=== PATIENT | female | born 1950 | race Caucasian/White ===

== ENCOUNTER → 2016-04-13 | Outpatient (CLI) | payer OTHER, BC ==
[~2016-04-13] VITALS: Ht 147.3 cm; Wt 51.3 kg
[~2016-04-13] MED LIST: ACYCLOVIR 800800 MG PO; ALPHAGAN P10 ML OP; APAP500 PO; AXERT6.25 MG OR; CLARITIN10 MG OR; COLACE100 MG PO; CYCLOBENZAPRINE OR; CYMBALTA30 MG PO; DOXYCYCLINE HY100 M3 PO; EVISTA OR; FEMARA2.5 MG PO; FLEXERIL PO; GABAPENTIN 100100 MG PO; HYDROCODONE-APA1 TA1 PO; HYSINGLA ER20 MG PO; K-TAB10 MEQ PO; KLOR-CON OR; LASIX 40 MG TAB40 M2 PO; LEVOTHYROXIN0.075 MG PO; LINZESS145 MCG PO; LUMIGAN2.5 M1 OP; LYRICA 50 MG50 MG PO; MAXALT5 MG PO; MOBIC OR; MOBIC7.5 MG PO; MUCINEX600 MG PO; NEXIUM40 MG OR; NEXIUM40 MG PO; NORCO 7.5-3251 EACH PO; NUCYNTA50 MG PO; NUCYNTA75 MG PO; PROLIA60 MG/1 ML SQ; PROPRANOLOL OR; STOOL SOFTENER100 M1 PO; SYNTHROID; TOPAMAX 25 MG T25 M1 PO; TRAMADOL 50 MG50 MG PO; TRAMADOL HCL50 MG PO; VITAMIN D 5050000 I1 PO; VITAMIN D1000 UNI1 PO; VITAMIN D400 UNI1 OR; VOLTAREN GEL 1100 G2 TOP; XANAX 0.25 MG0.25 MG PO
--- NOTE | ~2016-04-13 | HPC ---
[facility] [address] [place] [address] PAIN MANAGEMENT CONSULTATION Name: ERIC LANG Room #: REG GI Thompson#: [id number] Admission: 04/13/16 Attend Phys: Fidencio Calderon DO Discharge: Date of : 48 Report #: [id number] THIS REPORT FOR: //name// CC: Peace Calderon DATE OF SERVICE: 04/13/2016 The patient is a very pleasant 66-year-old female well known to pain clinic, typically treated for lumbar radiculopathy, although last visit, she had primarily right SI mediated pain, SI joint injections at that time afforded good relief. Returns to pain clinic today with ongoing right radicular pain. Pain is fairly classic right L3 distribution. She rates it a 5-6 on a 0-10 visual analog scale, exacerbated with sitting or bending over. Gets some relief with heat and exercise. She has really been intolerant of most analgesics, even TRAMADOL causing cognitive impairment. I reviewed her MRI findings, which do show fairly dramatic and significant stenosis with L3-L4 noting moderate to severe right-sided neural foraminal narrowing effacing the right L3 nerve root. She has spondylolisthesis at L4-L5. Long discussion with the patient today. Again, I believe unfortunately at some point, she may require surgical decompression. I have taken the liberty giving her contact information for Dr. Zoran Barcenas, Dr. Bob Terrazas, the neurosurgeons. Also, I gave her contact information for Dr. Arley Benavides though he has stopped active practice at [facility]. PHYSICAL EXAMINATION: Shows pleasant 66-year-old female, BMI is 23.6 kilograms per meter squared. Blood pressure is modestly elevated 139/93, pulse 94, respirations 16. Alert and oriented to person, place and time, judged to be a reasonable historian. Rises from chair using armrest, modestly antalgic gait, positive straight leg raise on the right with right hip flexion, lower extremity extension strength diminished. ASSESSMENT: Symptomatic lumbar radiculopathy secondary to spinal stenosis. RECOMMENDATION: 1. Lumbar epidural injection under fluoroscopy today at L3-L4, right of midline approach. 2. Contact information for neurosurgeon for consideration for definitive intervention. PROCEDURE: Lumbar epidural injection under fluoroscopy. [facility] [address] [place] [address] PAIN MANAGEMENT CONSULTATION Name: ERIC LANG Room #: REG GI Thompson#: [id number] Admission: 04/13/16 Attend Phys: Fidencio Calderon DO Discharge: Date of : 48 Report #: [id number] PROCEDURE NOTE: After both written and informed consent to include risk of spinal cord damage, increased pain, weakness and dural puncture, the patient was taken to the fluoroscopy suite, placed in the prone position. After sterile prep and drape, a skin wheal with lidocaine was raised. A 22-gauge epidural Tuohy needle was inserted in the midline at L3-L4 with good loss to resistance. Negative aspiration for cerebrospinal fluid or blood was noted. Then 1 mL of Omnipaque under biplanar fluoroscopy showed good spread within the epidural space. This was followed with 80 mg of triamcinolone plus 1 mL of 1.5% preservative-free Xylocaine, 0.5 mL Xylocaine was then injected to flush the needle; it was removed. The patient was monitored for an appropriate period of time and discharged in good and stable condition. <ELECTRONICALLY SIGNED> By: Fidencio Calderon DO 04/18/16 1607 1235 1721 Fidencio Calderon DO /nt
[2016-04-13 10:58] VITALS: BP 139/93
== END | disposition home or self-care (01) ==
LOC: PAIN 07:16
DX: M48.06 Spinal stenosis, lumbar region (principal); G89.29 Other chronic pain

== ENCOUNTER → 2016-06-15 | Outpatient (CLI) | payer OTHER, BC ==
[~2016-06-15] VITALS: Ht 144.8 cm; Wt 51.4 kg
--- NOTE | ~2016-06-15 | HPC ---
[facility] [place] [address] [place] [address] PAIN MANAGEMENT CONSULTATION Name: ERIC LANG Room #: REG GI Thompson#: [id number] Admission: 06/15/16 Attend Phys: Fidencio Calderon DO Discharge: Date of : 48 Report #: [id number] THIS REPORT FOR: //name// CC: Peace Calderon The patient is an extremely pleasant 66-year-old female well known to pain clinic, typically treated for symptomatic lumbar radiculopathy secondary to spinal stenosis, component of right SI joint dysfunction and DJD affecting right knee. She was last seen in the pain clinic 05/11/2016. She has done well over time with episodic epidural injections as far back as January 2014. Generally had good relief for several months, although last injection 04/13/2016 had afforded less duration of improvement. I ordered an MRI of the lumbar spine, which was obtained 05/16/2016. We reviewed these findings. Notes fairly significant stenosis with the right neural foraminal narrowing at L3-L4. Her symptoms tend to be primarily right L3 radicular pattern. We talked about possibly moving forward with a surgical opinion and she does indeed have consult with Dr. Bob Terrazas coming up. She was started on gabapentin fairly low dose 200 mg did not help, 300 mg helps, but has caused some emotional lability and little bit of a tremor. I suggested we might try rotating Lyrica 50 mg generally about an equally a therapeutic dose, but may be associated with some less side effects. PHYSICAL EXAMINATION: Today again, does show a little pain in the right knee. She had a recent steroid injections here. BMI is 24.5 kilograms per meter squared. Vital signs 132/95, pulse 101, respirations 16. Alert and oriented to person, place and time, judged to be a reasonable historian. Rises from chair using armrest, does have a thoraco-lumbar scoliosis in the lumbar spine. Slight decreased right hip flexion strength. Positive straight leg raise on the right. ASSESSMENT: 1. Symptomatic lumbar radiculopathy secondary to spinal stenosis, lumbar spondylosis with component of scoliosis, degenerative joint disease affecting bilateral knees, right greater than left and some component of right sacroiliac joint dysfunction. 2. Neuropathic pain component. RECOMMENDATIONS: 1. As noted, I have taken the liberty of writing for a small dose of Lyrica 50 mg 1 tablet t.i.d., dispensed #21 tablets with a coupon to get this first week provided by the provider. I have suggested the patient simply take the tablet one at bedtime in lieu of the gabapentin. 2. Fluoroscopic-guided epidural injection today, right of midline at L3-L4. 3. Agree with neurosurgical consultation. [address] [address] PAIN MANAGEMENT CONSULTATION Name: ERIC LANG Room #: REG CL Donna#: [id number] Admission: 06/15/16 Attend Phys: Fidencio Calderon DO Discharge: Date of : 48 Report #: [id number] PROCEDURE: Lumbar epidural steroid injection. PROCEDURE NOTE: After both written and informed consent to include risk of spinal cord damage, increased pain, weakness and dural puncture, the patient was taken to the fluoroscopy suite, placed in the prone position. After sterile prep and drape, a skin wheal with lidocaine was raised. A 22-gauge epidural Tuohy needle was inserted in the midline at L3-4 with good loss to resistance. Negative aspiration for cerebrospinal fluid or blood was noted. Then 1 mL of Omnipaque under biplanar fluoroscopy showed good spread within the epidural space. This was followed with 80 mg of triamcinolone plus 1 mL of 1.5% preservative-free Xylocaine, 0.5 mL Xylocaine was then injected to flush the needle; it was removed. The patient was monitored for an appropriate period of time and discharged in good and stable condition. The patient was discharged in good and stable condition, noting some subjective improvement of baseline pain. <ELECTRONICALLY SIGNED> By: Fidencio Calderon DO 06/18/16 1237 1321 0133 Fidencio Calderon DO /nt
[2016-06-15 14:18] VITALS: BP 132/95
== END ==
LOC: PAIN 06:48
DX: M47.26 Other spondylosis with radiculopathy, lumbar region (principal); M41.86 Other forms of scoliosis, lumbar region; M17.0 Bilateral primary osteoarthritis of knee; M53.3 Sacrococcygeal disorders, not elsewhere classified; F10.21 Alcohol dependence, in remission

== ENCOUNTER → 2016-06-26 | Outpatient (CLI) | payer OTHER, BC | LOC: MRI 02:04 | DX: M17.12 Unilateral primary osteoarthritis, left knee (principal) ==

== ENCOUNTER → 2016-06-29 | Outpatient (CLI) | payer OTHER, BC ==
[~2016-06-29] VITALS: Ht 147.3 cm; Wt 52.0 kg
--- NOTE | ~2016-06-29 | HPC ---
[facility] [place] [address] PAIN MANAGEMENT CONSULTATION Name: ERIC LANG Room #: REG GI Thompson#: [id number] Admission: 06/29/16 Attend Phys: Fidencio Calderon DO Discharge: Date of : 48 Report #: [id number] THIS REPORT FOR: //name// CC: Peace Calderon The patient is a very pleasant 66-year-old female typically treated for lumbar radiculopathy secondary to spinal stenosis. She has a component of right SI mediated pain. She was given an epidural injection at last visit 06/15/2016 with very good transient relief. She typically does get good relief, though symptoms continue to recur. She notes she had 60% relief overall from last visit. She was able to walk a little better with less pain; however, she went to [place] with her brother and states she walked up to 8 miles a day for a long weekend and pain continues to be problematic. She has since I saw her last seen Dr. Zoran Barcenas. He reviewed surgical options and in his opinion, a spinal cord stimulator to be the best option. She has also seen Dr. Jesus Leal who notes she will likely need partial replacement of the right knee. Today, we spent a good deal of time talking about therapeutic options. Again, I am happy to trial a spinal cord stimulator, but I think we should address her knee first. Last visit, I started the patient on Lyrica samples for neuropathic pain. She thinks that this is helpful, but she is using a fairly low dose 15 mg at bedtime. We have taken the liberty of writing a prescription for 50 mg tablet to take one tablet in the morning, 2 at night. I have given her samples to titrate up to this dose. She notes today the pain of 5/10, pinching, sharpening, burning, tingling, low back, right leg with knee pain that remains unchanged. PHYSICAL EXAMINATION: Otherwise unchanged. Very pleasant 66-year-old female, BMI is 27 kilograms per meter squared. Blood pressure is modestly elevated 140/94, pulse 95, respirations are 12. Rises from chair using armrest, moderately antalgic gait. Does have some diffuse tenderness across the low back, does have a little scoliosis. Positive straight leg raise on the right, though this is fairly nominal. Primary pain is axial low back with right knee pain. ASSESSMENT: Symptomatic lumbar radiculopathy secondary to spinal stenosis, right sacroiliac joint mediated pain and right knee degenerative joint disease. RECOMMENDATION: After discussion with the patient, we elected to increase Lyrica as noted above. I provided a prescription for 50 mg tablets titrated up to 1 in the morning and 2 at night, 270 tablets for a 90-[place] [address] PAIN MANAGEMENT CONSULTATION Name: ERIC LANG Room #: REG GI Thompson#: [id number] Admission: 06/29/16 Attend Phys: Fidencio Calderon DO Discharge: Date of : 48 Report #: [id number] will have the patient follow up after she follows through with Dr. Leal for consideration for a partial knee arthroscopy. We will move forward with authorizing spinal cord stimulator. We talked about need to talk to a psychologist as required by most third alliance party payers including Medicare. Again, I think she is an excellent candidate. She has ongoing symptomatic lumbar radiculopathy secondary to spinal stenosis. She has significant scoliosis. She has been seen by an excellent neurosurgeon who suggests at this point no interventional therapy as surgery would be fairly extensive and would likely only affect some of the radicular component of pain, would not address the axial back pain. We will seek authorization for spinal cord stimulator trial (high frequency stimulator, Nevro). The patient was discharged in good and stable condition. <ELECTRONICALLY SIGNED> By: Fidencio Calderon DO 07/02/16 1130 1037 1333 Fidencio Calderon DO /nt
[2016-06-29 13:29] VITALS: BP 140/94
== END ==
LOC: PAIN 07:03
DX: M54.16 Radiculopathy, lumbar region (principal); M48.06 Spinal stenosis, lumbar region; M53.3 Sacrococcygeal disorders, not elsewhere classified; M17.11 Unilateral primary osteoarthritis, right knee

== ENCOUNTER → 2016-08-31 | Outpatient (CLI) | payer OTHER, BC ==
[~2016-08-31] VITALS: Ht 144.8 cm; Wt 52.4 kg
[~2016-08-31] MED LIST changes: +ACCUNEB SO1.25 MG/1 INH; +LYRICA100 MG PO
--- NOTE | ~2016-08-31 | HPC ---
[facility] [address] [place] [address] PAIN MANAGEMENT CONSULTATION Name: ERIC LANG Room #: REG GI Thompson#: [id number] Admission: 08/31/16 Attend Phys: Fidencio Calderon DO Discharge: Date of : 48 Report #: [id number] THIS REPORT FOR: //name// CC: Peace Calderon HISTORY OF PRESENT ILLNESS: The patient is a very pleasant 66-year-old female well known to pain clinic, typically treated for symptomatic lumbar radiculopathy secondary to spinal stenosis and significant scoliosis. Component of right SI joint dysfunction. She was last seen in the pain clinic on 06/29/2016. Given epidural injection on 06/15/2016 (prior had had a single injection on 04/13/2016; prior epidural injections had been greater than a year ago, May 2015). We talked about spinal cord stimulator at last visit, I suggested the patient follow up with the back surgeon, she did have a consult with Dr. Zoran Barcenas. He ordered new diagnostic studies noting moderate lumbar scoliosis, spondylolisthesis at L4-L5 which worsens with flexion. He suggested that if they were to proceed with surgery, it would be fairly extensive and the benefits would not likely outweigh the risks. Ultimately, they have elected to defer back surgery, we will continue to treat the patient as needed for lumbar radicular symptoms. We talked about pursuing spinal cord stimulator as a more definitive treatment option. She does have DJD, right knee. I have spoken with Dr. Leal about possible total knee arthroplasty, this due to scheduling concerns will not likely occur till the fall. I told the patient we can proceed with spinal cord stimulator at her convenience. We had discussed risks, benefits and therapeutic indications at length in the past. She presents to pain clinic today with ongoing radicular pain. She notes pain is 4/10 presently, but gets worse with activity, classic neurogenic claudication with pain in low back, right buttock and leg. ASSESSMENT: Symptomatic lumbar radiculopathy secondary to spinal stenosis. RECOMMENDATIONS: Epidural injection under fluoroscopy today. Follow up simply as needed. PROCEDURE: Lumbar epidural injection under fluoroscopy. PROCEDURE NOTE: After both written and informed consent to include risk of spinal cord damage, increased pain, weakness and dural puncture, the patient was taken to the fluoroscopy suite, placed in the prone position. After sterile prep and drape, a skin wheal with lidocaine was raised. A 22-gauge epidural Tuohy needle was inserted in the midline at L3-L4 with good loss to resistance. Negative aspiration for cerebrospinal fluid or blood was noted. Then 1 mL of Omnipaque under biplanar fluoroscopy showed good spread within the epidural [address] [address] PAIN MANAGEMENT CONSULTATION Name: ERIC LANG Room #: REG GI Thompson#: [id number] Admission: 08/31/16 Attend Phys: Fidencio Calderon DO Discharge: Date of : 49 Report #: [id number] space. This was followed with 80 mg of triamcinolone plus 1 mL of 1.5% preservative-free Xylocaine, 0.5 mL Xylocaine was then injected to flush the needle; it was removed. The patient was monitored for an appropriate period of time and discharged in good and stable condition. By: 1538 [id number] Fidencio Calderon DO /nt
[2016-08-31 13:02] VITALS: BP 137/92
== END | disposition home or self-care (01) ==
LOC: PAIN 06:19
DX: M48.06 Spinal stenosis, lumbar region (principal); G89.29 Other chronic pain; M53.3 Sacrococcygeal disorders, not elsewhere classified; M41.86 Other forms of scoliosis, lumbar region; M17.0 Bilateral primary osteoarthritis of knee

== ENCOUNTER → 2016-12-27 | Outpatient (CLI) | payer OTHER, BC ==
[~2016-12-27] VITALS: Ht 144.8 cm; Wt 53.0 kg
--- NOTE | ~2016-12-27 | HPC ---
[facility] [address] [place] [address] PAIN MANAGEMENT CONSULTATION Name: ERIC LANG Room #: REG GI Thompson#: [id number] Admission: 12/27/16 Attend Phys: Fidencio Calderon DO Discharge: Date of : 48 Report #: [id number] THIS REPORT FOR: //name// CC: Peace Calderon The patient is a very pleasant 66-year-old female well known to the pain clinic, being treated for lumbar radiculopathy secondary to spinal stenosis, lumbar scoliosis and spondylosis, right SI joint dysfunction. We talked about spinal cord stimulator at multiple times. She follows up with Dr. Zorna Barcenas who unfortunately noted that she really is not a good surgical candidate. Ultimately, we have elected to continue with conservative therapy. She is traveling to [place] for a cruise up in the [place] and [facility]. She is requesting epidural injection today. We will plan on moving forward with spinal cord stimulator trial when she gets back. She has done well with occasional epidural injections, she has had injections of this year in August, June and April. Physical exam notes subjective pain score 7 on a VAS, pain in her low back, primarily right leg, anterior thigh and right L3 distribution. ASSESSMENT: Symptomatic lumbar radiculopathy secondary to spinal stenosis. RECOMMENDATIONS: Lumbar epidural injection under fluoroscopy today. Follow up for consideration for spinal cord stimulator trial at earliest possible date. PROCEDURE NOTE: Lumbar epidural injection under fluoroscopy. PROCEDURE: Lumbar epidural steroid injection. PROCEDURE NOTE: After both written and informed consent to include risk of spinal cord damage, increased pain, weakness and dural puncture, the patient was taken to the fluoroscopy suite, placed in the prone position. After sterile prep and drape, a skin wheal with lidocaine was raised. A 22-gauge epidural Tuohy needle was inserted in the midline at L3-L4 with good loss to resistance. Negative aspiration for cerebrospinal fluid or blood was noted. Then 1 mL of Omnipaque under biplanar fluoroscopy showed good spread within the epidural space. This was followed with 80 mg of triamcinolone plus 1 mL of 1.5% preservative-free Xylocaine, 0.5 mL Xylocaine was then injected to flush the needle; it was removed. The patient was monitored for an appropriate period of time and discharged in good and stable condition. By: 1557 0046 Fidencio Calderon DO /nt
[2016-12-27 13:06] VITALS: BP 131/94
== END | disposition home or self-care (01) ==
LOC: PAIN 07:07
DX: M48.06 Spinal stenosis, lumbar region (principal); G89.29 Other chronic pain; M47.26 Other spondylosis with radiculopathy, lumbar region; M41.86 Other forms of scoliosis, lumbar region; M53.3 Sacrococcygeal disorders, not elsewhere classified; F41.8 Other specified anxiety disorders; Z98.890 Other specified postprocedural states

== ENCOUNTER → 2017-03-04 | Outpatient (CLI) | payer OTHER, BC ==
[~2017-03-04] VITALS: Ht 144.8 cm; Wt 51.7 kg
[~2017-03-04] MED LIST changes: +LIPITOR10 MG PO
--- NOTE | ~2017-03-04 | HPC ---
[facility] [place] [address] PAIN MANAGEMENT CONSULTATION Name: ERIC LANG Room #: REG GI Thompson#: [id number] Admission: 03/04/17 Attend Phys: Fidencio Calderon, DO Discharge: Date of : 49 Report #: [id number] THIS REPORT FOR: //name// CC: Cassius Calderon PROCEDURE: Implantation of 2 spinal cord stimulator leads for trial. INDICATION: Symptomatic lumbar radiculopathy, spinal stenosis, thoracolumbar scoliosis with ongoing axial back and lumbar radicular pain, having failed conservative therapies. PROCEDURE NOTE: After written informed consent was obtained including risk of paralysis, infection and increased pain, the patient wished to proceed. Intravenous access was established in the patient's right forearm, 1 gram of Ancef was instilled. The patient was taken to the fluoroscopy suite, placed in the prone position with appropriate abdominal bolstering. Wide surgical prep and drape was accomplished. A skin wheal with Xylocaine was raised right paramedian at L1-L2. Stab incision with an #11 scalpel was made. A 14-gauge epidural Tuohy needle was placed to enter the posterior spinous process at T12-L1. Stylet was removed. Saline filled glass syringe was placed. With continuous plunger pressure and biplanar fluoroscopy, the needle was easily advanced into the epidural space. Lead was attempted to advance; however, continued to get left of midline and into the more anterior space. This lead trial was aborted. Attention was directed at the contralateral i.e., left paramedian approach, again a skin wheal with Xylocaine was raised, #11 scalpel, incision was made and a 14-gauge epidural Tuohy needle was placed to enter the posterior spinous process at T12-L1. Stylet was removed, saline filled glass syringe was attached, the needle was easily advanced into the epidural space. This lead was easily advanced to the top of T6. A second lead was placed in an identical fashion 1-2 mm inferior again from a left paramedian approach easily during the epidural space with biplanar fluoroscopy and continuous plunger pressure on the saline filled glass syringe. AP and lateral projections showed leads in the posterior aspect of the canal parallel and to the top of T6. Intraoperative stimulation was obtained. The leads covered all of the body of T6 and T8. With intermittent fluoroscopy, the needle and stylet were withdrawn. The lead tips remained intact. Lead was secured using Steri-Strips and mastic. Wide bolster dressing was applied. The patient was allowed to ambulate to the exam room. Conversation continued regarding stimulation patterns with the [employer] repElba. The patient discharged in good and stable condition, she has contact information for myself and for the [employer] rep. We will follow up in 1 week for lead evaluation and removal. She has contact information for the pain clinic [address] [address] PAIN MANAGEMENT CONSULTATION Name: ERIC LANG Room #: REG GI Thompson#: [id number] Admission: 03/04/17 Attend Phys: Fidencio Calderon DO Discharge: Date of : 48 Report #: [id number] physician non profit job titles at [facility] should she have any concerns whatsoever. <ELECTRONICALLY SIGNED> By: Fidencio Calderon DO 03/11/17 0759 0829 0850 Fidencio Calderon DO /nt
[2017-03-04 07:17] VITALS: BP 135/95
== END | disposition home or self-care (01) ==
LOC: PAIN 06:50
DX: M48.061 Spinal stenosis, lumbar region without neurogenic claudication (principal); M41.85 Other forms of scoliosis, thoracolumbar region; G89.29 Other chronic pain; Z79.899 Other long term (current) drug therapy

== ENCOUNTER → 2017-03-11 | Outpatient (CLI) | payer OTHER, BC ==
[~2017-03-11] VITALS: Ht 144.8 cm; Wt 52.7 kg
--- NOTE | ~2017-03-11 | HPC ---
[facility] [place] [address] PAIN MANAGEMENT CONSULTATION Name: ERIC LANG Room #: REG GI Thompson#: [id number] Admission: 03/11/17 Attend Phys: Fidencio Calderon, DO Discharge: Date of : 49 Report #: [id number] THIS REPORT FOR: //name// CC: CHRISTEL Calderon The patient is a very pleasant 67-year-old female, well known to pain clinic, typically treated for lumbar radiculopathy secondary to spinal stenosis, component of thoracolumbar scoliosis, spondylosis. She has failed conservative therapy. We ultimately progressed to have a spinal cord stimulator trial on 03/04/2017. She returns to pain clinic today noting dramatic improvement of baseline pain, perhaps a 90% overall improvement, with functional status is improved, though. She was a little cautious during the trial as far as rotational movement and "housekeeping" type activities, though she notes pain today is 0 on a VAS. Physical exam is actually fairly unremarkable at this time. The patient was taken to the fluoroscopy suite. The leads were visualized, they appear to have moved really not significantly at all, covering all of T8, T7 up to the bottom of T6. They moved down perhaps an interspace at best. Leads were ultimately removed. The area was cleansed, and Band-Aids applied. The patient wished to proceed with spinal cord stimulator implant. I will order thoracolumbar MRI today. We will refer the patient to Dr. Christel Medina for consideration for permanent implantation of a [employer] spinal cord stimulator. SHORT REVIEW OF MEDICAL HISTORY NOTES: The patient has had chronic axial back and right leg pain for a number of years. She initially was seen at [facility] pain [facility] on 01/29/2014. She does have moderate scoliosis convex to the left. She has an old incidental C5 compression fracture. History of DJD of right shoulder. Has severe right neural foraminal narrowing at L3-L4, L4-L5 demonstrates anterolisthesis at L4-L5. There is facet hypertrophy and bilateral neural foraminal narrowing, right greater than left at this level. The patient has had interventional therapy including good relief yet transient with epidural injections, multiple times since 2013, about 9 injections in 3 years. Comorbidities include history of left breast carcinoma with some lymphedema, dyslipidemia, reactive airway disease, osteoporosis. Migraine headaches, for which she uses rare Maxalt. Hypothyroidism, for which she takes levothyroxine. Gastroesophageal reflux, for which she takes Nexium. [facility] [address] [place] [address] PAIN MANAGEMENT CONSULTATION Name: ERIC LANG Room #: REG [facility] [id number] Admission: 03/11/17 Attend Phys: Fidencio Calderon DO Discharge: Date of : 48 Report #: [id number] Again, the patient was discharged today in good and stable condition. Contact information for Dr. Christel Medina was given. Follow up simply as needed. <ELECTRONICALLY SIGNED> By: Fidencio Calderon DO 03/13/17 0834 1224 1626 Fidencio Calderon DO /nt
[2017-03-11 10:14] VITALS: BP 136/91
== END ==
LOC: PAIN 07:23
DX: M48.061 Spinal stenosis, lumbar region without neurogenic claudication (principal); M54.16 Radiculopathy, lumbar region; M41.85 Other forms of scoliosis, thoracolumbar region; M47.895 Other spondylosis, thoracolumbar region; K21.9 Gastro-esophageal reflux disease without esophagitis; E03.9 Hypothyroidism, unspecified; E78.5 Hyperlipidemia, unspecified; Z85.3 Personal history of malignant neoplasm of breast

== ENCOUNTER → 2017-04-23 | Outpatient (CLI) | payer OTHER, BC | LOC: MRI 02:25 | DX: M25.522 Pain in left elbow (principal); R60.0 Localized edema; I89.0 Lymphedema, not elsewhere classified ==

== ENCOUNTER → 2019-10-20 | Outpatient (CLI) | payer OTHER, BC | LOC: SJCVCIMAG 10:04 | PROVIDERS: ATTEND Internal Medicine Cardiovascular Disease | DX: I49.3 Ventricular premature depolarization (principal); I42.9 Cardiomyopathy, unspecified; I25.10 Atherosclerotic heart disease of native coronary artery without angina pectoris; I10 Essential (primary) hypertension ==

== ENCOUNTER → 2020-06-30 | Outpatient (CLI) | payer OTHER, BC | LOC: SJCVC 10:27 | PROVIDERS: ATTEND Internal Medicine Cardiovascular Disease | DX: R94.31 Abnormal electrocardiogram [ECG] [EKG] (principal); I11.0 Hypertensive heart disease with heart failure; I44.60 Unspecified fascicular block; I42.9 Cardiomyopathy, unspecified; E78.00 Pure hypercholesterolemia, unspecified; R93.1 Abnormal findings on diagnostic imaging of heart and coronary circulation; K21.9 Gastro-esophageal reflux disease without esophagitis; R60.0 Localized edema; E78.5 Hyperlipidemia, unspecified; E03.9 Hypothyroidism, unspecified; M19.90 Unspecified osteoarthritis, unspecified site; Z79.899 Other long term (current) drug therapy; Z72.89 Other problems related to lifestyle ==

== ENCOUNTER → 2020-11-02 | Outpatient (CLI) | payer OTHER, BC | LOC: SJCVCIMAG 07:28 | PROVIDERS: ATTEND Internal Medicine Cardiovascular Disease | DX: L97.519 Non-pressure chronic ulcer of other part of right foot with unspecified severity (principal); I73.9 Peripheral vascular disease, unspecified; M79.604 Pain in right leg; M79.605 Pain in left leg; E78.00 Pure hypercholesterolemia, unspecified; I25.10 Atherosclerotic heart disease of native coronary artery without angina pectoris; I42.9 Cardiomyopathy, unspecified; I73.00 Raynaud's syndrome without gangrene; K21.9 Gastro-esophageal reflux disease without esophagitis; G89.29 Other chronic pain; M19.90 Unspecified osteoarthritis, unspecified site; M81.0 Age-related osteoporosis without current pathological fracture; Z79.899 Other long term (current) drug therapy; Z82.49 Family history of ischemic heart disease and other diseases of the circulatory system ==

== ENCOUNTER → 2020-11-21 | Outpatient (CLI) | payer OTHER, BC | LOC: HYPER 08:47 | PROVIDERS: ATTEND Emergency Medicine | DX: S91.301A Unspecified open wound, right foot, initial encounter (principal); S90.811A Abrasion, right foot, initial encounter; L97.512 Non-pressure chronic ulcer of other part of right foot with fat layer exposed; I73.00 Raynaud's syndrome without gangrene; M81.0 Age-related osteoporosis without current pathological fracture; R60.0 Localized edema; E78.5 Hyperlipidemia, unspecified; K21.9 Gastro-esophageal reflux disease without esophagitis; K58.9 Irritable bowel syndrome, unspecified; E03.9 Hypothyroidism, unspecified; G47.00 Insomnia, unspecified; M19.90 Unspecified osteoarthritis, unspecified site; I25.10 Atherosclerotic heart disease of native coronary artery without angina pectoris; Z79.82 Long term (current) use of aspirin; Z79.899 Other long term (current) drug therapy; Z90.10 Acquired absence of unspecified breast and nipple; Z96.651 Presence of right artificial knee joint; X58.XXXA Exposure to other specified factors, initial encounter; Y93.89 Activity, other specified; Y92.89 Other specified places as the place of occurrence of the external cause; Y99.8 Other external cause status ==

== ENCOUNTER → 2020-11-30 | Outpatient (CLI) | payer OTHER, BC | LOC: HYPER 08:01 | PROVIDERS: ATTEND Emergency Medicine | DX: S91.301D Unspecified open wound, right foot, subsequent encounter (principal); S90.811D Abrasion, right foot, subsequent encounter; L97.512 Non-pressure chronic ulcer of other part of right foot with fat layer exposed; I73.00 Raynaud's syndrome without gangrene; R60.0 Localized edema; E78.5 Hyperlipidemia, unspecified; K21.9 Gastro-esophageal reflux disease without esophagitis; K58.9 Irritable bowel syndrome, unspecified; E03.9 Hypothyroidism, unspecified; G47.00 Insomnia, unspecified; M81.0 Age-related osteoporosis without current pathological fracture; M19.90 Unspecified osteoarthritis, unspecified site; I25.10 Atherosclerotic heart disease of native coronary artery without angina pectoris; I42.9 Cardiomyopathy, unspecified; Z79.82 Long term (current) use of aspirin; Z90.10 Acquired absence of unspecified breast and nipple; Z96.651 Presence of right artificial knee joint; X58.XXXD Exposure to other specified factors, subsequent encounter ==

== ENCOUNTER → 2020-12-13 | Outpatient (CLI) | payer OTHER, BC | LOC: HYPER 07:50 | PROVIDERS: ATTEND Emergency Medicine | DX: L97.512 Non-pressure chronic ulcer of other part of right foot with fat layer exposed (principal); S91.301D Unspecified open wound, right foot, subsequent encounter; M81.0 Age-related osteoporosis without current pathological fracture; I73.00 Raynaud's syndrome without gangrene; R60.0 Localized edema; K21.9 Gastro-esophageal reflux disease without esophagitis; M19.90 Unspecified osteoarthritis, unspecified site; E78.5 Hyperlipidemia, unspecified; I25.10 Atherosclerotic heart disease of native coronary artery without angina pectoris; K58.9 Irritable bowel syndrome, unspecified; E03.9 Hypothyroidism, unspecified; G47.00 Insomnia, unspecified; Z90.10 Acquired absence of unspecified breast and nipple; Z96.22 Myringotomy tube(s) status; Z96.651 Presence of right artificial knee joint; Z79.82 Long term (current) use of aspirin; Z79.899 Other long term (current) drug therapy; X58.XXXD Exposure to other specified factors, subsequent encounter ==

== ENCOUNTER → 2020-12-21 | Outpatient (CLI) | payer OTHER, BC | LOC: HYPER 08:29 | PROVIDERS: ATTEND Emergency Medicine | DX: S90.31XD Contusion of right foot, subsequent encounter (principal); L97.515 Non-pressure chronic ulcer of other part of right foot with muscle involvement without evidence of necrosis; R60.0 Localized edema; E78.5 Hyperlipidemia, unspecified; E03.9 Hypothyroidism, unspecified; I73.00 Raynaud's syndrome without gangrene; I25.10 Atherosclerotic heart disease of native coronary artery without angina pectoris; I42.9 Cardiomyopathy, unspecified; G47.00 Insomnia, unspecified; K21.9 Gastro-esophageal reflux disease without esophagitis; K58.9 Irritable bowel syndrome, unspecified; M81.0 Age-related osteoporosis without current pathological fracture; M19.90 Unspecified osteoarthritis, unspecified site; Z90.10 Acquired absence of unspecified breast and nipple; Z96.22 Myringotomy tube(s) status; Z96.651 Presence of right artificial knee joint; Z79.82 Long term (current) use of aspirin; X58.XXXD Exposure to other specified factors, subsequent encounter ==

== ENCOUNTER → 2020-12-28 | Outpatient (CLI) | payer OTHER, BC | LOC: HYPER 08:29 | PROVIDERS: ATTEND Emergency Medicine | DX: S90.31XD Contusion of right foot, subsequent encounter (principal); L97.515 Non-pressure chronic ulcer of other part of right foot with muscle involvement without evidence of necrosis; L84 Corns and callosities; R60.0 Localized edema; E78.5 Hyperlipidemia, unspecified; E03.9 Hypothyroidism, unspecified; I73.00 Raynaud's syndrome without gangrene; I25.10 Atherosclerotic heart disease of native coronary artery without angina pectoris; I42.9 Cardiomyopathy, unspecified; G47.00 Insomnia, unspecified; K21.9 Gastro-esophageal reflux disease without esophagitis; K58.9 Irritable bowel syndrome, unspecified; M81.0 Age-related osteoporosis without current pathological fracture; M19.90 Unspecified osteoarthritis, unspecified site; Z90.10 Acquired absence of unspecified breast and nipple; Z96.22 Myringotomy tube(s) status; Z96.651 Presence of right artificial knee joint; Z79.82 Long term (current) use of aspirin; X58.XXXD Exposure to other specified factors, subsequent encounter ==

== ENCOUNTER → 2021-01-16 | Outpatient (CLI) | payer OTHER, BC | LOC: HYPER 12:17 | PROVIDERS: ATTEND Emergency Medicine | DX: S91.301D Unspecified open wound, right foot, subsequent encounter (principal); L97.512 Non-pressure chronic ulcer of other part of right foot with fat layer exposed; I73.00 Raynaud's syndrome without gangrene; R60.0 Localized edema; M81.0 Age-related osteoporosis without current pathological fracture; K21.9 Gastro-esophageal reflux disease without esophagitis; M19.90 Unspecified osteoarthritis, unspecified site; E78.5 Hyperlipidemia, unspecified; I25.10 Atherosclerotic heart disease of native coronary artery without angina pectoris; K58.9 Irritable bowel syndrome, unspecified; E03.9 Hypothyroidism, unspecified; G47.00 Insomnia, unspecified; Z96.22 Myringotomy tube(s) status; Z90.10 Acquired absence of unspecified breast and nipple; Z79.82 Long term (current) use of aspirin; Z79.899 Other long term (current) drug therapy; X58.XXXD Exposure to other specified factors, subsequent encounter ==

== ENCOUNTER → 2021-01-26 | Outpatient (CLI) | payer OTHER, BC | LOC: HYPER 09:29 | PROVIDERS: ATTEND Emergency Medicine | DX: S91.301D Unspecified open wound, right foot, subsequent encounter (principal); L97.515 Non-pressure chronic ulcer of other part of right foot with muscle involvement without evidence of necrosis; S90.31XD Contusion of right foot, subsequent encounter; L84 Corns and callosities; I73.00 Raynaud's syndrome without gangrene; R60.0 Localized edema; E03.9 Hypothyroidism, unspecified; E78.5 Hyperlipidemia, unspecified; G47.00 Insomnia, unspecified; I25.10 Atherosclerotic heart disease of native coronary artery without angina pectoris; M81.0 Age-related osteoporosis without current pathological fracture; K21.9 Gastro-esophageal reflux disease without esophagitis; M19.90 Unspecified osteoarthritis, unspecified site; K58.9 Irritable bowel syndrome, unspecified; Z96.22 Myringotomy tube(s) status; Z90.10 Acquired absence of unspecified breast and nipple; Z79.82 Long term (current) use of aspirin; X58.XXXD Exposure to other specified factors, subsequent encounter ==

== ENCOUNTER → 2021-02-02 | Outpatient (CLI) | payer OTHER, BC | LOC: HYPER 10:12 | PROVIDERS: ATTEND Emergency Medicine | DX: S91.301D Unspecified open wound, right foot, subsequent encounter (principal); L97.515 Non-pressure chronic ulcer of other part of right foot with muscle involvement without evidence of necrosis; S90.31XD Contusion of right foot, subsequent encounter; M81.0 Age-related osteoporosis without current pathological fracture; I73.00 Raynaud's syndrome without gangrene; R60.0 Localized edema; E78.5 Hyperlipidemia, unspecified; I25.10 Atherosclerotic heart disease of native coronary artery without angina pectoris; K21.9 Gastro-esophageal reflux disease without esophagitis; K58.9 Irritable bowel syndrome, unspecified; E03.9 Hypothyroidism, unspecified; M19.90 Unspecified osteoarthritis, unspecified site; G47.00 Insomnia, unspecified; Z90.10 Acquired absence of unspecified breast and nipple; Z96.651 Presence of right artificial knee joint; Z98.890 Other specified postprocedural states; Z79.82 Long term (current) use of aspirin; Z79.899 Other long term (current) drug therapy; X58.XXXD Exposure to other specified factors, subsequent encounter ==

== ENCOUNTER → 2021-02-09 | Outpatient (CLI) | payer OTHER, BC | LOC: HYPER 09:50 | PROVIDERS: ATTEND Specialist | DX: L97.512 Non-pressure chronic ulcer of other part of right foot with fat layer exposed (principal); S91.301D Unspecified open wound, right foot, subsequent encounter; S90.31XD Contusion of right foot, subsequent encounter; M81.0 Age-related osteoporosis without current pathological fracture; I73.00 Raynaud's syndrome without gangrene; R60.0 Localized edema; K21.9 Gastro-esophageal reflux disease without esophagitis; M19.90 Unspecified osteoarthritis, unspecified site; E78.5 Hyperlipidemia, unspecified; I25.10 Atherosclerotic heart disease of native coronary artery without angina pectoris; K58.9 Irritable bowel syndrome, unspecified; E03.9 Hypothyroidism, unspecified; G47.00 Insomnia, unspecified; Z90.10 Acquired absence of unspecified breast and nipple; Z96.651 Presence of right artificial knee joint; Z79.82 Long term (current) use of aspirin; Z79.899 Other long term (current) drug therapy; X58.XXXD Exposure to other specified factors, subsequent encounter ==

== ENCOUNTER → 2021-02-23 | Outpatient (CLI) | payer OTHER, BC | LOC: HYPER 09:33 | PROVIDERS: ATTEND Emergency Medicine | DX: L97.512 Non-pressure chronic ulcer of other part of right foot with fat layer exposed (principal); S91.301D Unspecified open wound, right foot, subsequent encounter; S90.31XD Contusion of right foot, subsequent encounter; M81.0 Age-related osteoporosis without current pathological fracture; I73.00 Raynaud's syndrome without gangrene; R60.0 Localized edema; K21.9 Gastro-esophageal reflux disease without esophagitis; M19.90 Unspecified osteoarthritis, unspecified site; E78.5 Hyperlipidemia, unspecified; I25.10 Atherosclerotic heart disease of native coronary artery without angina pectoris; K58.9 Irritable bowel syndrome, unspecified; E03.9 Hypothyroidism, unspecified; G47.00 Insomnia, unspecified; Z90.10 Acquired absence of unspecified breast and nipple; Z96.651 Presence of right artificial knee joint; Z79.82 Long term (current) use of aspirin; X58.XXXD Exposure to other specified factors, subsequent encounter ==

== ENCOUNTER → 2021-03-08 | Outpatient (CLI) | payer OTHER, BC | LOC: HYPER 14:30 | PROVIDERS: ATTEND Emergency Medicine | DX: S91.301D Unspecified open wound, right foot, subsequent encounter (principal); S81.802A Unspecified open wound, left lower leg, initial encounter; S80.812A Abrasion, left lower leg, initial encounter; L97.512 Non-pressure chronic ulcer of other part of right foot with fat layer exposed; M81.0 Age-related osteoporosis without current pathological fracture; I73.00 Raynaud's syndrome without gangrene; R60.0 Localized edema; K21.9 Gastro-esophageal reflux disease without esophagitis; M19.90 Unspecified osteoarthritis, unspecified site; E78.5 Hyperlipidemia, unspecified; I25.10 Atherosclerotic heart disease of native coronary artery without angina pectoris; K58.9 Irritable bowel syndrome, unspecified; E03.9 Hypothyroidism, unspecified; G47.00 Insomnia, unspecified; Z79.82 Long term (current) use of aspirin; Z96.651 Presence of right artificial knee joint; Z90.10 Acquired absence of unspecified breast and nipple; Z96.22 Myringotomy tube(s) status; Z79.899 Other long term (current) drug therapy; X58.XXXD Exposure to other specified factors, subsequent encounter; X58.XXXA Exposure to other specified factors, initial encounter; Y93.89 Activity, other specified; Y92.89 Other specified places as the place of occurrence of the external cause; Y99.8 Other external cause status ==

== ENCOUNTER → 2021-03-15 | Outpatient (CLI) | payer OTHER, BC | LOC: HYPER 14:04 | PROVIDERS: ATTEND Emergency Medicine | DX: L97.512 Non-pressure chronic ulcer of other part of right foot with fat layer exposed (principal); S90.31XD Contusion of right foot, subsequent encounter; S80.812D Abrasion, left lower leg, subsequent encounter; S91.301D Unspecified open wound, right foot, subsequent encounter; S81.802D Unspecified open wound, left lower leg, subsequent encounter; M81.0 Age-related osteoporosis without current pathological fracture; I73.00 Raynaud's syndrome without gangrene; R60.0 Localized edema; E78.5 Hyperlipidemia, unspecified; I25.10 Atherosclerotic heart disease of native coronary artery without angina pectoris; K21.9 Gastro-esophageal reflux disease without esophagitis; K58.9 Irritable bowel syndrome, unspecified; E03.9 Hypothyroidism, unspecified; G47.00 Insomnia, unspecified; M19.90 Unspecified osteoarthritis, unspecified site; Z96.651 Presence of right artificial knee joint; Z98.890 Other specified postprocedural states; Z96.22 Myringotomy tube(s) status; Z79.82 Long term (current) use of aspirin; Z79.899 Other long term (current) drug therapy; Z90.10 Acquired absence of unspecified breast and nipple; X58.XXXD Exposure to other specified factors, subsequent encounter ==

== ENCOUNTER → 2021-03-21 | Outpatient (CLI) | payer OTHER, BC | LOC: SJCVCIMAG 09:08 | PROVIDERS: ATTEND Internal Medicine Cardiovascular Disease | DX: I35.1 Nonrheumatic aortic (valve) insufficiency (principal); I42.9 Cardiomyopathy, unspecified; E78.00 Pure hypercholesterolemia, unspecified; I73.00 Raynaud's syndrome without gangrene; I10 Essential (primary) hypertension; K21.9 Gastro-esophageal reflux disease without esophagitis; E78.5 Hyperlipidemia, unspecified; E03.9 Hypothyroidism, unspecified; R93.1 Abnormal findings on diagnostic imaging of heart and coronary circulation; Z72.89 Other problems related to lifestyle; Z79.899 Other long term (current) drug therapy ==

== ENCOUNTER → 2021-03-23 | Outpatient (CLI) | payer OTHER, BC | LOC: HYPER 10:18 | PROVIDERS: ATTEND Emergency Medicine | DX: S81.801D Unspecified open wound, right lower leg, subsequent encounter (principal); S90.31XD Contusion of right foot, subsequent encounter; S80.812D Abrasion, left lower leg, subsequent encounter; L97.512 Non-pressure chronic ulcer of other part of right foot with fat layer exposed; M81.0 Age-related osteoporosis without current pathological fracture; I73.00 Raynaud's syndrome without gangrene; R60.0 Localized edema; K21.9 Gastro-esophageal reflux disease without esophagitis; M19.90 Unspecified osteoarthritis, unspecified site; E78.5 Hyperlipidemia, unspecified; I25.10 Atherosclerotic heart disease of native coronary artery without angina pectoris; K58.9 Irritable bowel syndrome, unspecified; E03.9 Hypothyroidism, unspecified; G47.00 Insomnia, unspecified; Z96.651 Presence of right artificial knee joint; Z79.82 Long term (current) use of aspirin; Z79.899 Other long term (current) drug therapy; Z96.22 Myringotomy tube(s) status; Z90.10 Acquired absence of unspecified breast and nipple; X58.XXXD Exposure to other specified factors, subsequent encounter ==

== ENCOUNTER → 2021-04-05 | Outpatient (CLI) | payer OTHER, BC | LOC: HYPER 08:15 | PROVIDERS: ATTEND Emergency Medicine | DX: S81.801D Unspecified open wound, right lower leg, subsequent encounter (principal); S90.31XD Contusion of right foot, subsequent encounter; S80.812D Abrasion, left lower leg, subsequent encounter; L97.512 Non-pressure chronic ulcer of other part of right foot with fat layer exposed; L84 Corns and callosities; R60.0 Localized edema; E78.5 Hyperlipidemia, unspecified; E03.9 Hypothyroidism, unspecified; G47.00 Insomnia, unspecified; I25.10 Atherosclerotic heart disease of native coronary artery without angina pectoris; I73.00 Raynaud's syndrome without gangrene; I42.9 Cardiomyopathy, unspecified; K58.9 Irritable bowel syndrome, unspecified; K21.9 Gastro-esophageal reflux disease without esophagitis; M81.0 Age-related osteoporosis without current pathological fracture; M19.90 Unspecified osteoarthritis, unspecified site; Z96.651 Presence of right artificial knee joint; Z79.82 Long term (current) use of aspirin; Z96.22 Myringotomy tube(s) status; Z90.10 Acquired absence of unspecified breast and nipple; X58.XXXD Exposure to other specified factors, subsequent encounter ==

== ENCOUNTER → 2021-04-20 | Outpatient (CLI) | payer OTHER, BC | LOC: HYPER 14:39 | PROVIDERS: ATTEND Emergency Medicine | DX: S81.801D Unspecified open wound, right lower leg, subsequent encounter (principal); S90.31XD Contusion of right foot, subsequent encounter; S80.812D Abrasion, left lower leg, subsequent encounter; L97.512 Non-pressure chronic ulcer of other part of right foot with fat layer exposed; L84 Corns and callosities; R60.0 Localized edema; E78.5 Hyperlipidemia, unspecified; E03.9 Hypothyroidism, unspecified; G47.00 Insomnia, unspecified; I25.10 Atherosclerotic heart disease of native coronary artery without angina pectoris; I73.00 Raynaud's syndrome without gangrene; I42.9 Cardiomyopathy, unspecified; K58.9 Irritable bowel syndrome, unspecified; K21.9 Gastro-esophageal reflux disease without esophagitis; M81.0 Age-related osteoporosis without current pathological fracture; M19.90 Unspecified osteoarthritis, unspecified site; Z96.651 Presence of right artificial knee joint; Z79.82 Long term (current) use of aspirin; Z96.22 Myringotomy tube(s) status; Z90.10 Acquired absence of unspecified breast and nipple; X58.XXXD Exposure to other specified factors, subsequent encounter ==

== ENCOUNTER → 2021-05-02 | Outpatient (CLI) | payer OTHER, BC | LOC: HYPER 13:52 | PROVIDERS: ATTEND Emergency Medicine | DX: S81.801D Unspecified open wound, right lower leg, subsequent encounter (principal); L97.512 Non-pressure chronic ulcer of other part of right foot with fat layer exposed; M81.0 Age-related osteoporosis without current pathological fracture; I73.00 Raynaud's syndrome without gangrene; R60.0 Localized edema; K21.9 Gastro-esophageal reflux disease without esophagitis; M19.90 Unspecified osteoarthritis, unspecified site; E78.5 Hyperlipidemia, unspecified; I25.10 Atherosclerotic heart disease of native coronary artery without angina pectoris; K58.9 Irritable bowel syndrome, unspecified; E03.9 Hypothyroidism, unspecified; G47.00 Insomnia, unspecified; Z96.22 Myringotomy tube(s) status; Z79.82 Long term (current) use of aspirin; Z79.899 Other long term (current) drug therapy; Z96.651 Presence of right artificial knee joint; X58.XXXD Exposure to other specified factors, subsequent encounter ==